=== PATIENT | female | born 1960 | race Caucasian/White ===

== ENCOUNTER 2017-07-17 16:36 | Inpatient (IN) | payer SELFPAY ==
[2017-07-17] MEDS: HYDROcodone/APAP 5/325MG 1 TAB TABLET PO (19:53)
[2017-07-17] MEDS: OXcarbazepine 300 MG TABLET PO (22:05)
[2017-07-17] MEDS: ALPRAZolam 1 MG TABLET PO (22:05)
[2017-07-17] MEDS: AMOXICILLIN 250 MG CAPSULE. PO (22:05)
[2017-07-17] MEDS: IV NORMAL SALINE 1000ML BAG 1,000 ML IV (22:06)
[2017-07-17 22:28] LABS: HEMATOCRIT 40.3 % (36.0-47.0); HEMOGLOBIN 14.6 g/dL (12.0-15.5); MEAN CORPUSCULAR HEMOGLOBIN 33 pg (25-35); MEAN CORPUSCULAR HGB CONC 36 g/dL (31-37); MEAN CORPUSCULAR VOLUME 92 fL (79-100); PLATELET COUNT 227 x10^3/uL (140-400); RED BLOOD COUNT 4.38 x10^6/uL (3.50-5.40); RED CELL DISTRIBUTION WIDTH 12.9 % (11.5-14.5); WHITE BLOOD COUNT 8.3 x10^3/uL (4.0-11.0)
[2017-07-17 22:41] LABS: ALBUMIN 3.9 g/dL (3.4-5.0); ALBUMIN/GLOBULIN RATIO 1.1 (1.0-1.7); ALK PHOS 92 U/L (46-116); ALT (SGPT) 53 U/L (14-59); ANION GAP 8 (6-14); AST (SGOT) 33 U/L (15-37); BLOOD UREA NITROGEN 12 mg/dL (7-20); BUN/CREATININE RATIO 17 (6-20); CALCIUM 8.4 mg/dL (8.5-10.1); CARBON DIOXIDE 27 mmol/L (21-32); CHLORIDE 81 mmol/L (98-107); CREATININE 0.7 mg/dL (0.6-1.0); GFR 87.2; GLUCOSE 104 mg/dL (70-99); POTASSIUM 3.5 mmol/L (3.5-5.1); TOTAL BILIRUBIN 0.7 mg/dL (0.2-1.0); TOTAL PROTEIN 7.5 g/dL (6.4-8.2)
[2017-07-17 22:51] LABS: THYROID STIM HORMONE (TSH) 1.723 uIU/mL (0.358-3.74)
[2017-07-17] MEDS: TEMAZEPAM 7.5 MG CAPSULE PO (22:57)
[2017-07-17 23:17] LABS: SODIUM 116 mmol/L (136-145)
[2017-07-18] MEDS: HYDROcodone/APAP 5/325MG 1 TAB TABLET PO (03:14)
[2017-07-18 07:04] LABS: ANION GAP 9 (6-14); BLOOD UREA NITROGEN 12 mg/dL (7-20); CALCIUM 8.3 mg/dL (8.5-10.1); CARBON DIOXIDE 28 mmol/L (21-32); CHLORIDE 88 mmol/L (98-107); CREATININE 0.7 mg/dL (0.6-1.0); GFR 87.2; GLUCOSE 102 mg/dL (70-99); POTASSIUM 3.8 mmol/L (3.5-5.1); SODIUM 125 mmol/L (136-145)
[2017-07-18] MEDS: PANTOPRAZOLE 40 MG TABLET.DR. PO (08:07)
[2017-07-18] MEDS: levETIRAcetam 250 MG TABLET PO ×2 (08:55→21:11)
[2017-07-18] MEDS: AMOXICILLIN 250 MG CAPSULE. PO ×3 (08:55→21:11)
[2017-07-18] MEDS: LISINOPRIL 20 MG TABLET PO (08:56)
[2017-07-18] MEDS: hydroCHLOROthiazide 12.5 MG CAPSULE PO (08:56)
[2017-07-18] MEDS: ALPRAZolam 1 MG TABLET PO ×3 (08:58→21:11)
[2017-07-18] MEDS: OXcarbazepine 300 MG TABLET PO ×2 (08:59→21:11)
[2017-07-18] MEDS ORDERED: NON FORMULARY ITEM (Lisinopril/Hydrochlorothiazide (Lisinopril-Hctz 20-12.5 Mg Tab) 1 TAB) PO (09:00)
[2017-07-18] MEDS: IV NORMAL SALINE 1000ML BAG 1,000 ML IV (12:42)
[2017-07-18] MEDS: ACETAMINOPHEN 325 MG TABLET. PO (13:04)
[2017-07-18 14:43] LABS: URIC ACID 2.3 mg/dL (2.6-6.0)
[2017-07-18] MEDS: LACTOBACILLUS RHAMNOSUS GG 1 CAPSULE. PO (21:11)
[2017-07-18 21:17] LABS: SODIUM, URINE 64 mmol/L (Not Estab.); UR POTASSIUM 14.8 mmol/L (Not Estab.)
[2017-07-19] MEDS: IV NORMAL SALINE 1000ML BAG 1,000 ML IV ×2 (02:04→13:39)
[2017-07-19] MEDS: ACETAMINOPHEN 325 MG TABLET. PO ×2 (06:01→19:44)
[2017-07-19 06:20] LABS: ANION GAP 6 (6-14); BLOOD UREA NITROGEN 17 mg/dL (7-20); CALCIUM 9.2 mg/dL (8.5-10.1); CARBON DIOXIDE 29 mmol/L (21-32); CHLORIDE 103 mmol/L (98-107); CREATININE 0.8 mg/dL (0.6-1.0); GFR 74.7; GLUCOSE 94 mg/dL (70-99); POTASSIUM 4.1 mmol/L (3.5-5.1); SODIUM 138 mmol/L (136-145)
[2017-07-19] MEDS: ALPRAZolam 1 MG TABLET PO ×3 (08:25→21:01)
[2017-07-19] MEDS: AMOXICILLIN 250 MG CAPSULE. PO ×3 (08:25→21:00)
[2017-07-19] MEDS: OXcarbazepine 300 MG TABLET PO ×2 (08:25→21:01)
[2017-07-19] MEDS: PANTOPRAZOLE 40 MG TABLET.DR. PO (08:25)
[2017-07-19] MEDS: levETIRAcetam 250 MG TABLET PO ×2 (08:26→21:01)
[2017-07-19] MEDS: LACTOBACILLUS RHAMNOSUS GG 1 CAPSULE. PO ×2 (08:26→21:00)
[2017-07-19] MEDS: LISINOPRIL 20 MG TABLET PO (08:30)
[2017-07-20 05:26] LABS: ANION GAP 8 (6-14); BLOOD UREA NITROGEN 11 mg/dL (7-20); CALCIUM 9.1 mg/dL (8.5-10.1); CARBON DIOXIDE 26 mmol/L (21-32); CHLORIDE 104 mmol/L (98-107); CREATININE 0.7 mg/dL (0.6-1.0); GFR 87.2; GLUCOSE 100 mg/dL (70-99); POTASSIUM 4.1 mmol/L (3.5-5.1); SODIUM 138 mmol/L (136-145)
[2017-07-20] MEDS: LACTOBACILLUS RHAMNOSUS GG 1 CAPSULE. PO (08:27)
[2017-07-20] MEDS: AMOXICILLIN 250 MG CAPSULE. PO (08:27)
[2017-07-20] MEDS: PANTOPRAZOLE 40 MG TABLET.DR. PO (08:27)
[2017-07-20] MEDS: ALPRAZolam 1 MG TABLET PO (08:27)
[2017-07-20] MEDS: levETIRAcetam 250 MG TABLET PO (08:27)
[2017-07-20] MEDS: OXcarbazepine 300 MG TABLET PO (08:27)
[2017-07-20] MEDS: LISINOPRIL 20 MG TABLET PO (09:00)
== END 2017-07-20 12:00 | disposition home or self-care (01) | DRG 641 ==
LOC: 5 NORTH 16:36
DX: E87.1 Hypo-osmolality and hyponatremia (principal); F17.210 Nicotine dependence, cigarettes, uncomplicated; F32.9 Major depressive disorder, single episode, unspecified; G40.909 Epilepsy, unspecified, not intractable, without status epilepticus; F41.9 Anxiety disorder, unspecified; I10 Essential (primary) hypertension; J44.9 Chronic obstructive pulmonary disease, unspecified; Z82.0 Family history of epilepsy and other diseases of the nervous system; Z86.73 Personal history of transient ischemic attack (TIA), and cerebral infarction without residual deficits
CPT/HCPCS: 36415; 71046; 80048; 80053; 82436; 83930; 84133; 84300; 84439; 84443; 84550; 85027; J7030

== ENCOUNTER 2018-04-19 14:26 | Emergency (ER) | payer SELFPAY ==
[~2018-04-19] VITALS: Ht 165.1 cm; Wt 72.6 kg
[~2018-04-19 14:26] MED LIST: ALPR0.25 PO; ALPR1TAB6 PO; AMOX500C PO; ESOM20CA PO; LEVE250T4 PO; LISI-130 PO; LISI1TAB5 PO; OXCA300T19 PO; TEMA7.5C2 PO
[2018-04-19] MEDS ORDERED: IV NORMAL SALINE 1000ML BAG 1,000 ML IV ONE (15:45)
[2018-04-19 15:50] LABS: BASO # 0.1 x10^3/uL (0.0-0.2); BASO % 1 % (0-3); EOS # 0.1 x10^3/uL (0.0-0.7); EOS % 2 % (0-3); HEMATOCRIT 42.7 % (36.0-47.0); HEMOGLOBIN 14.3 g/dL (12.0-15.5); LYMPH # 2.9 x10^3/uL (1.0-4.8); LYMPH % 46 % (24-48); MEAN CORPUSCULAR HEMOGLOBIN 33 pg (25-35); MEAN CORPUSCULAR HGB CONC 33 g/dL (31-37); MEAN CORPUSCULAR VOLUME 97 fL (79-100); MONO # 0.5 x10^3/uL (0.0-1.1); MONO % 8 % (0-9); NEUT # 2.7 x10^3uL (1.8-7.7); NEUT % 43 % (31-73); PLATELET COUNT 229 x10^3/uL (140-400); RED BLOOD COUNT 4.39 x10^6/uL (3.50-5.40); RED CELL DISTRIBUTION WIDTH 13.3 % (11.5-14.5); WHITE BLOOD COUNT 6.2 x10^3/uL (4.0-11.0)
[2018-04-19 15:54] LABS: BILIRUBIN,URINE NEGATIVE (NEG); CLARITY,URINE CLEAR; COLOR,URINE YELLOW; NITRITE,URINE NEGATIVE (NEG); PROTEIN,URINE NEGATIVE (NEG-TRACE)
[2018-04-19 15:55] LABS: BARBITURATES NEG (NEG); BENZODIAZEPINES POS (NEG); CANNABINOIDS NEG (NEG); COCAINE NEG (NEG); METHADONE NEG (NEG); OPIATES NEG (NEG); PHENCYCLIDINE NEG (NEG)
[2018-04-19 15:58] LABS: CALCIUM 9.8 mg/dL (8.5-10.1); CREATININE 0.7 mg/dL (0.6-1.0); GFR 86.9; POTASSIUM 3.4 mmol/L (3.5-5.1)
[2018-04-19 16:00] LABS: AMPHETAMINE/METHAMPHETAMINE NEG (NEG); HYALINE CASTS, URINE FEW /HPF; SQUAMOUS EPITHELIAL CELL,UR MOD /LPF
[2018-04-19] MEDS ORDERED: BUTALB/APAP/CAFEIN 50/325/40MG TABLET. PO ONE (16:00)
[2018-04-19 16:01] LABS: BACTERIA,URINE MODERATE /HPF (0-FEW); RBC,URINE 0 /HPF (0-2); WBC,URINE 0 /HPF (0-4)
[2018-04-19 16:04] LABS: ALBUMIN 4.1 g/dL (3.4-5.0); ALBUMIN/GLOBULIN RATIO 1.1 (1.0-1.7); TOTAL BILIRUBIN 0.6 mg/dL (0.2-1.0); TOTAL PROTEIN 7.7 g/dL (6.4-8.2)
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
--- NOTE | 2018-04-19 16:17 | RAD ---
Examination: CT HEAD WO CONTRAST History: ams Comparison/Correlation: None Findings: Axial images of the head were obtained without contrast. Mild atrophy and chronic ischemic change are present. No intracranial hemorrhage, midline shift, or mass effect. Bony structures are unremarkable. Impression: No acute process. PQRS Compliance Statement: One or more of the following individualized dose reduction techniques were utilized for this examination: 1. Automated exposure control 2. Adjustment of the mA and/or kV according to patient size 3. Use of iterative reconstruction technique Electronically signed by: Pelon Ellis MD (04/19/2018 4:14 PM) [facility]
--- NOTE | 2018-04-19 16:18 | RAD ---
CHEST PA LATERAL History: COUGH, AMS Comparison: Two-view chest, July 18, 2017. Findings: The cardiomediastinal silhouette is normal. Pulmonary vasculature is normal. The lungs are clear. No pleural effusion or pneumothorax is seen. There is no acute bone abnormality. IMPRESSION: No acute cardiopulmonary process. Electronically signed by: Moustapha Nicolas MD (04/19/2018 4:15 PM) [id number]
[2018-04-19 17:00] VITALS: BP 126/68
[2018-04-19] MEDS ORDERED: BUTA1TAB23 PO (17:01)
[2018-04-19 17:47] LABS: CARBAM < 0.5 mcg/mL (4.0-12.0)
--- NOTE | 2018-04-19 17:55 | EKG ---
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
--- NOTE | 2018-04-19 18:33 | RAD ---
Examination: 3 views of the left hand HISTORY: History of fall, pain COMPARISON: None available FINDINGS: The alignment of the carpal bones grossly appears unremarkable. The carpometacarpal joint, metacarpophalangeal, interphalangeal joints grossly appears unremarkable. There is no obvious acute fracture or dislocation identified. IMPRESSION: No acute osseous findings. Electronically signed by: Ren Ferrell MD (04/19/2018 6:30 PM) [facility]
== END 2018-04-19 17:49 | disposition home or self-care (01) ==
LOC: ER 14:26
DX: R41.0 Disorientation, unspecified (principal); R51 Headache; G56.02 Carpal tunnel syndrome, left upper limb; R35.0 Frequency of micturition; R19.7 Diarrhea, unspecified; R50.9 Fever, unspecified; F41.9 Anxiety disorder, unspecified; I10 Essential (primary) hypertension; Z90.89 Acquired absence of other organs
CPT/HCPCS: 36415; 70450; 71046; 73130; 80053; 80156; 80307; 81001; 82140; 82553; 83605; 83735; 84484; 85025; 85610; 85730; 87086; 93005; 96360; 99284; G0480; J7030

== ENCOUNTER → 2018-09-02 | Outpatient (CLI) | payer SELFPAY ==
[~2018-09-02] MED LIST changes: +BUTA1TAB23 PO; +GADOTERATE 7.5 MMOL/15ML VIAL. IVP ONE
--- NOTE | 2018-09-02 14:29 | RAD ---
EXAMINATION: Magnetic resonance imaging (MRI) of the brain and brainstem without and with contrast 09/02/2018 11:15 AM HISTORY: Recent multiple seizures TECHNIQUE: Multiplanar multi-weighted MRI of the brain and brainstem was performed without and with intravenous contrast using the seizure brain protocol. Contrast information: 13 mL Gadolinium based contrast COMPARISON: None available. FINDINGS: The scalp and calvarium are normal. The superior sagittal sinus demonstrates normal venous flow. The corpus callosum is normal in shape and signal intensity. The posterior fossa is unremarkable. The pituitary and sella are normal. The brainstem and craniocervical junction are unremarkable. There is a remote lacunar infarct along the right caudate head with expected dilatation of the body of the right lateral ventricle. Hippocampi are symmetric in signal intensity and morphology. There is no heterotopic cabral matter. No findings to suggest confirmation of cortical development. Ventricles, sulci and basal cisterns are prominent compatible with mild generalized cerebral volume loss. There are T2/FLAIR signal hyperintense foci in the periventricular and subcortical white matter most suggestive of mild chronic small vessel ischemic changes. Diffusion weighted images reveal no hyperintensities to suggest acute cerebral infarction. The susceptibility weighted sequences reveal no evidence of acute or chronic hemorrhage. No hydrocephalus. There are no areas of abnormal contrast enhancement. Tiny mucus retention cyst is identified in the lateral left maxillary sinus. The visualized portions of the mastoids are unremarkable. The orbits appear normal. Normal flow voids are demonstrated in the carotid arteries and basilar artery. IMPRESSION: 1. No evidence for acute or subacute ischemia. 2. Remote lacunar infarct involving the right caudate head with expected dilatation of the body of the right lateral ventricle. 3. Mild generalized cerebral volume loss. 4. Hippocampi are symmetric in signal intensity and morphology. 5. There are T2/FLAIR signal hyperintense foci in the periventricular and subcortical white matter most suggestive of mild chronic small vessel ischemic changes. Electronically signed by: Merlyn Dougherty MD (09/02/2018 2:27 PM) [id number]
== END | disposition home or self-care (01) ==
LOC: MRI 11:29
PROVIDERS: ATTEND Family Medicine
DX: I63.81 Other cerebral infarction due to occlusion or stenosis of small artery (principal); J34.1 Cyst and mucocele of nose and nasal sinus; R90.82 White matter disease, unspecified; Z87.820 Personal history of traumatic brain injury
CPT/HCPCS: 70553; A9575

== ENCOUNTER 2018-09-07 23:48 | Emergency (ER) | payer SELFPAY ==
[~2018-09-07] VITALS: Ht 165.1 cm; Wt 68.0 kg
[~2018-09-07 23:48] MED LIST changes: -GADOTERATE 7.5 MMOL/15ML VIAL. IVP ONE
[2018-09-08 01:18] LABS: CREATININE ISTAT 1.9 mg/dL (0.5-1.4); HEMOGLOBIN ISTAT 14.3 g/dL (12-15); ION CA ISTAT 1.14 mmol/L (1.13-1.32); POTASSIUM ISTAT 3.2 mmol/L (3.5-5.0)
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
[2018-09-08 01:31] VITALS: BP 91/54
--- NOTE | 2018-09-08 08:02 | RAD ---
Examination: PORTABLE CHEST 1V History: Pain, trauma Comparison/Correlation: 04/19/2018 two-view chest x-ray exam Findings: Portable upright frontal view chest was obtained. Heart size and pulmonary vasculature are normal. No infiltrate or pleural effusion. No pneumothorax. No acute bony process. Impression: No active disease. Consider further evaluation if fracture is a persistent concern. Electronically signed by: Pelon Ellis MD (09/08/2018 8:00 AM) [facility]
== END 2018-09-08 01:35 | disposition short-term general hospital (02) ==
LOC: ER 23:48
DX: S00.03XA Contusion of scalp, initial encounter (principal); S30.811A Abrasion of abdominal wall, initial encounter; S80.811A Abrasion, right lower leg, initial encounter; F10.129 Alcohol abuse with intoxication, unspecified; Y90.9 Presence of alcohol in blood, level not specified; F41.9 Anxiety disorder, unspecified; I10 Essential (primary) hypertension; Z90.89 Acquired absence of other organs; W10.8XXA Fall (on) (from) other stairs and steps, initial encounter; Y93.89 Activity, other specified; Y92.89 Other specified places as the place of occurrence of the external cause; Y99.8 Other external cause status
CPT/HCPCS: 36415; 36430; 71045; 80047; 81025; 86850; 86900; 86901; 86920; 99285; P9016

== ENCOUNTER 2019-04-01 13:06 | Emergency (ER) | payer SELFPAY ==
[~2019-04-01] VITALS: Ht 165.1 cm; Wt 66.0 kg
[~2019-04-01 13:06] MED LIST changes: +LISI1TAB19 PO; -LISI1TAB5 PO
[2019-04-01] MEDS ORDERED: IV NORMAL SALINE 1000ML BAG 1,000 ML IV SCH (13:35)
--- NOTE | 2019-04-01 13:40 | PHYS DOC ---
Past Medical History Past Medical History: Anxiety, Hypertension, Seizure, Other Additional Past Medical Histor: TBI, HYPONATREMIA, INSOMNIA Past Surgical History: Tonsillectomy, Other Additional Past Surgical Histo: NASAL SX Alcohol Use: Rarely Drug Use: Marijuana Social History Narrative: last use 3 weeks ago Adult General Chief Complaint Chief Complaint: NAUSEA/VOMITING/DIARRHA HPI HPI Patient is a 58-year-old female who presents to the emergency department for evaluation with multiple complaints. She states about 10 days ago she developed a cold, sore PCP and was put on a Z-Mikey. She states she felt better for a few days, but over the past 2-3 days, she had return of not feeling well. She states she has had a headache throughout the entire time, for the past 10 days, different than prior headaches that she has had. She has had some nausea and vomiting and diarrhea over the past 2 days, but states her diarrhea has really been going on for several weeks, even prior to her starting the antibiotics. She has not had any hematemesis, or bloody stools. She has not had any numbness, weakness, vision changes, significant chest pain, or significant shortness of breath. There are no alleviating or exacerbating factors to her symptoms otherwise. Review of Systems Review of Systems Constitutional: Denies fever or chills [] Eyes: Denies change in visual acuity, redness, or eye pain [] HENT: Denies nasal congestion or sore throat [] Respiratory: Denies shortness of breath [] Cardiovascular: The patient denies any shortness of breath, chest pain, palpitations, or orthopnea [] GI: No additional information not addressed in HPI [] : Denies dysuria or hematuria [] Musculoskeletal: Denies back pain or joint pain [] Integument: Denies rash or skin lesions [] Neurologic: Denies focal weakness or sensory changes [] Endocrine: Denies polyuria or polydipsia [] All other systems were reviewed and found to be within normal limits, except as documented in this note. Current Medications Current Medications Current Medications Medications (Trade) Dose Ordered Sig/Hernan Start Time Stop Time Status Last Admin Dose Admin Info (CONTRAST GIVEN -- Rx MONITORING) 1 each PRN DAILY PRN 04/01/19 14:30 04/03/19 14:29 Iohexol (Omnipaque 300 Mg/ml) 60 ml 1X ONCE 04/01/19 14:30 04/01/19 14:31 DC 04/01/19 14:40 60 ML Sodium Chloride 1,000 ml @ 1,000 mls/hr Q1H 04/01/19 13:35 04/01/19 14:34 DC 04/01/19 14:09 1,000 MLS/HR Allergies Allergies Allergies Coded Allergies Type Severity Reaction Last Updated Verified No Known Drug Allergies 07/17/17 No Physical Exam Physical Exam PHYSICAL EXAM: CONSTITUTIONAL: Well developed, well nourished HEAD: normocephalic, atraumatic EENT: PERRL, EOMI. Conjunctivae normal color, sclerae non-icteric; moist mucous membranes. NECK: Supple, non-tender; no meningismus. LUNGS: Mild scattered expiratory rhonchi, breathing even and unlabored. Normal air movement. HEART: Regular rate and rhythm, no murmur CHEST: No deformity; non-tender ABDOMEN: The abdomen is soft, there is mild diffuse tenderness to palpation to lower abdomen, without rebound or guarding, no masses or bruits. EXTREM: Normal ROM; no deformity, no calf tenderness. Normal pulses palpable in all extremities. There is no pedal edema. SKIN: No rash; no diaphoresis NEURO: Alert; normal speech and cognition; CN's grossly intact; strength grossly intact without focal deficit. BACK: No CVA TTP. PSYCHIATRIC: The patient appears moderately anxious. Current Patient Data Vital Signs Vital Signs Date Time Temp Pulse Resp B/P (MAP) Pulse Ox O2 Delivery O2 Flow Rate FiO2 04/01/19 13:15 98.3 104 18 151/97 (115) 97 Room Air 98.3 Lab Values Laboratory Tests Test 04/01/19 14:00 04/01/19 14:02 White Blood Count 7.5 x10^3/uL (4.0-11.0) Red Blood Count 4.52 x10^6/uL (3.50-5.40) Hemoglobin 15.2 g/dL (12.0-15.5) Hematocrit 44.3 % (36.0-47.0) Mean Corpuscular Volume 98 fL (79-100) Mean Corpuscular Hemoglobin 34 pg (25-35) Mean Corpuscular Hemoglobin Concent 34 g/dL (31-37) Red Cell Distribution Width 14.7 % (11.5-14.5) H Platelet Count 245 x10^3/uL (140-400) Neutrophils (%) (Auto) 53 % (31-73) Lymphocytes (%) (Auto) 35 % (24-48) Monocytes (%) (Auto) 10 % (0-9) H Eosinophils (%) (Auto) 1 % (0-3) Basophils (%) (Auto) 1 % (0-3) Neutrophils # (Auto) 4.0 x10^3/uL (1.8-7.7) Lymphocytes # (Auto) 2.6 x10^3/uL (1.0-4.8) Monocytes # (Auto) 0.8 x10^3/uL (0.0-1.1) Eosinophils # (Auto) 0.0 x10^3/uL (0.0-0.7) Basophils # (Auto) 0.1 x10^3/uL (0.0-0.2) Sodium Level 141 mmol/L (136-145) Potassium Level 3.5 mmol/L (3.5-5.1) Chloride Level 100 mmol/L (98-107) Carbon Dioxide Level 30 mmol/L (21-32) Anion Gap 11 (6-14) Blood Urea Nitrogen 13 mg/dL (7-20) Creatinine 1.0 mg/dL (0.6-1.0) Estimated GFR (Cockcroft-Gault) 57.4 BUN/Creatinine Ratio 13 (6-20) Glucose Level 105 mg/dL (70-99) H Calcium Level 9.6 mg/dL (8.5-10.1) Total Bilirubin 0.6 mg/dL (0.2-1.0) Aspartate Amino Transferase (AST) 22 U/L (15-37) Alanine Aminotransferase (ALT) 20 U/L (14-59) Alkaline Phosphatase 84 U/L (46-116) Troponin I Quantitative 0.018 ng/mL (0.000-0.055) Total Protein 7.4 g/dL (6.4-8.2) Albumin 3.6 g/dL (3.4-5.0) Albumin/Globulin Ratio 0.9 (1.0-1.7) L Lipase 129 U/L (73-393) Influenza Type A Antigen Negative (NEGATIVE) Influenza Type B Antigen Negative (NEGATIVE) Laboratory Tests 04/01/19 14:00 Laboratory Tests 04/01/19 14:00 EKG EKG Normal sinus rhythm a rate of 97 beats for minute, left axis deviation, left bundle branch block, with otherwise normal intervals. There are no acute ischemic ST/T changes. []EKG is unchanged compared to patient's prior EKG. Radiology/Procedures Radiology/Procedures PROCEDURE: CT HEAD WO CONTRAST EXAM: CT HEAD WITHOUT CONTRAST. HISTORY: Headache. TECHNIQUE: Computed tomography of the head was performed without intravenous contrast. One or more of the following individualized dose reduction techniques were utilized for this examination: 1. Automated exposure control. 2. Adjustment of the mA and/or kV according to patient size. 3. Use of iterative reconstruction technique. COMPARISON: 04/19/2018. FINDINGS: There is no intracranial hemorrhage. Hypoattenuation within the white matter indicates moderate chronic microangiopathic change. Prominence of the lateral ventricles and hemispheric sulci indicates moderate atrophy. The visualized paranasal sinuses appear clear. The orbits are unremarkable. The temporal bones are unremarkable. The calvarium reveals no suspicious lesions. IMPRESSION: 1. No acute intracranial findings. 2. Moderate atrophy and chronic microangiopathic white matter change.[] PROCEDURE: CT ABD PELV W/ IV CONTRST ONLY EXAM: Abdomen and pelvis CT with intravenous contrast. HISTORY: Pain. TECHNIQUE: Computed tomographic images of the abdomen and pelvis were obtained following the administration of intravenous contrast. Multiplanar reformatting was performed. *One or more of the following individualized dose reduction techniques were utilized for this examination: 1. Automated exposure control. 2. Adjustment of the mA and/or kV according to patient size. 3. Use of iterative reconstruction technique. COMPARISON: None. FINDINGS: Evaluation of the lower thorax demonstrates slight inferior bronchial wall thickening. There are ill-defined right infrahilar groundglass nodular opacities which may be infectious or inflammatory in etiology. The heart is normal in size. No hepatic lesion is seen. There is mild common bile duct dilatation. The pancreas, spleen, adrenal glands, kidneys and bladder are unremarkable. The uterus and ovaries are unremarkable. The appendix is normal in appearance. No abnormally thickened or dilated loop of bowel is seen. There are few colonic diverticula. There is no lymphadenopathy. The aorta is normal in caliber. There is no suspicious osseous lesion. There is a suspected hemangioma within the anterior inferior aspect of T10. IMPRESSION: 1. Mild common bile duct dilatation for patient age. ERCP or MRCP can be performed if this concern for an occult obstructing etiology. 2. Small groundglass nodular opacities within the right lower lobe, possibly infectious or inflammatory in etiology. The superimposed on slight bronchial wall thickening suggesting the sequela of bronchitis. PROCEDURE: CHEST PA & LATERAL EXAM: CHEST 2 VIEWS. HISTORY: Cough. COMPARISON: 09/08/2018. FINDINGS: Frontal and lateral views of the chest are obtained. There are no confluent infiltrates. There is no pneumothorax or pleural effusion. The heart is not enlarged. IMPRESSION: 1. No confluent infiltrates. Course & Med Decision Making Course & Med Decision Making Pertinent Labs and Imaging studies reviewed. (See chart for details) [] 3:40 PM: The patient's condition remains stable. Clinical suspicion for acute pathology relating to the patient's common bile duct is very low although I did discuss importance of close outpatient GI follow-up. Return precautions were discussed in detail. Dragon Disclaimer Dragon Disclaimer This electronic medical record was generated, in whole or in part, using a voice recognition dictation system. Departure Departure Impression: Primary Impression: Bronchitis Additional Impressions: Abdominal pain Headache Disposition: HOME, SELF-CARE Condition: STABLE Referrals: MAXIMO PARKINSON MD (PCP) GELA KIRKLAND MD Patient Instructions: Abdominal Pain, Acute Bronchitis, General Headache Without Cause Scripts Ondansetron (ONDANSETRON ODT) 4 Mg Tab.rapdis 1 TAB PO PRN Q6-8HRS, #15 TAB Prov: RADHA RUBY MD 04/01/19 Problem Qualifiers RADHA RUBY MD Apr 01, 2019 13:40
[2019-04-01 14:12] LABS: BASO # 0.1 x10^3/uL (0.0-0.2); BASO % 1 % (0-3); EOS % 1 % (0-3); HEMATOCRIT 44.3 % (36.0-47.0); HEMOGLOBIN 15.2 g/dL (12.0-15.5); LYMPH # 2.6 x10^3/uL (1.0-4.8); LYMPH % 35 % (24-48); MEAN CORPUSCULAR HEMOGLOBIN 34 pg (25-35); MEAN CORPUSCULAR HGB CONC 34 g/dL (31-37); MEAN CORPUSCULAR VOLUME 98 fL (79-100); MONO # 0.8 x10^3/uL (0.0-1.1); MONO % 10 % (0-9); NEUT % 53 % (31-73); PLATELET COUNT 245 x10^3/uL (140-400); RED BLOOD COUNT 4.52 x10^6/uL (3.50-5.40); RED CELL DISTRIBUTION WIDTH 14.7 % (11.5-14.5); WHITE BLOOD COUNT 7.5 x10^3/uL (4.0-11.0)
--- NOTE | 2019-04-01 14:14 | EKG ---
[facility] [address] [place] [address] Test Date: 2019-04-01 Test Time: 13:51:41 Pat Name: SOHA LEE Department: Room: Gender: F Supervisor Electronic Testing: : 1960 Requested By: RADHA RUBY Order Number: [id number] Reading MD: Measurements Intervals [place] Rate: 96 P: 49 CO: 142 QRS: -30 QRSD: 122 T: 113 QT: 402 QTc: 515 Interpretive Statements SINUS RHYTHM ABNORMAL LEFT AXIS DEVIATION INCOMPLETE LEFT BUNDLE BRANCH BLOCK LVH WITH REPOLARIZATION ABNORMALITY ABNORMAL ECG No previous ECG available for comparison
[2019-04-01 14:19] LABS: CALCIUM 9.6 mg/dL (8.5-10.1); GFR 57.4; POTASSIUM 3.5 mmol/L (3.5-5.1)
[2019-04-01 14:25] LABS: ALBUMIN 3.6 g/dL (3.4-5.0); ALBUMIN/GLOBULIN RATIO 0.9 (1.0-1.7); TOTAL BILIRUBIN 0.6 mg/dL (0.2-1.0); TOTAL PROTEIN 7.4 g/dL (6.4-8.2)
[2019-04-01] MEDS ORDERED: IOHEXOL 300 MG/ML 100ML VIAL. IV ONE (14:30)
[2019-04-01] MEDS ORDERED: CONTRAST GIVEN. MC PRN (14:30)
[2019-04-01 14:39] LABS: INFLUENZA A PATIENT NEGATIVE (NEGATIVE); INFLUENZA B PATIENT NEGATIVE (NEGATIVE)
--- NOTE | 2019-04-01 14:43 | RAD ---
EXAM: CHEST 2 VIEWS. HISTORY: Cough. COMPARISON: 09/08/2018. FINDINGS: Frontal and lateral views of the chest are obtained. There are no confluent infiltrates. There is no pneumothorax or pleural effusion. The heart is not enlarged. IMPRESSION: 1. No confluent infiltrates. Electronically signed by: Emy Booker MD (04/01/2019 2:39 PM) [facility]
--- NOTE | 2019-04-01 14:52 | RAD ---
EXAM: CT HEAD WITHOUT CONTRAST. HISTORY: Headache. TECHNIQUE: Computed tomography of the head was performed without intravenous contrast. One or more of the following individualized dose reduction techniques were utilized for this examination: 1. Automated exposure control. 2. Adjustment of the mA and/or kV according to patient size. 3. Use of iterative reconstruction technique. COMPARISON: 04/19/2018. FINDINGS: There is no intracranial hemorrhage. Hypoattenuation within the white matter indicates moderate chronic microangiopathic change. Prominence of the lateral ventricles and hemispheric sulci indicates moderate atrophy. The visualized paranasal sinuses appear clear. The orbits are unremarkable. The temporal bones are unremarkable. The calvarium reveals no suspicious lesions. IMPRESSION: 1. No acute intracranial findings. 2. Moderate atrophy and chronic microangiopathic white matter change. Electronically signed by: Emy Booker MD (04/01/2019 2:49 PM) [facility]
--- NOTE | 2019-04-01 14:53 | RAD ---
EXAM: Abdomen and pelvis CT with intravenous contrast. HISTORY: Pain. TECHNIQUE: Computed tomographic images of the abdomen and pelvis were obtained following the administration of intravenous contrast. Multiplanar reformatting was performed. *One or more of the following individualized dose reduction techniques were utilized for this examination: 1. Automated exposure control. 2. Adjustment of the mA and/or kV according to patient size. 3. Use of iterative reconstruction technique. COMPARISON: None. FINDINGS: Evaluation of the lower thorax demonstrates slight inferior bronchial wall thickening. There are ill-defined right infrahilar groundglass nodular opacities which may be infectious or inflammatory in etiology. The heart is normal in size. No hepatic lesion is seen. There is mild common bile duct dilatation. The pancreas, spleen, adrenal glands, kidneys and bladder are unremarkable. The uterus and ovaries are unremarkable. The appendix is normal in appearance. No abnormally thickened or dilated loop of bowel is seen. There are few colonic diverticula. There is no lymphadenopathy. The aorta is normal in caliber. There is no suspicious osseous lesion. There is a suspected hemangioma within the anterior inferior aspect of T10. IMPRESSION: 1. Mild common bile duct dilatation for patient age. ERCP or MRCP can be performed if this concern for an occult obstructing etiology. 2. Small groundglass nodular opacities within the right lower lobe, possibly infectious or inflammatory in etiology. The superimposed on slight bronchial wall thickening suggesting the sequela of bronchitis. Electronically signed by: Amy Cameron MD (04/01/2019 2:50 PM) [facility]
[2019-04-01] MEDS ORDERED: ONDA4TAB12 PO (15:46)
[2019-04-01 16:17] VITALS: BP 122/85
== END 2019-04-01 16:17 | disposition home or self-care (01) ==
LOC: ER 13:06
DX: J40 Bronchitis, not specified as acute or chronic (principal); R51 Headache; R10.84 Generalized abdominal pain; R11.2 Nausea with vomiting, unspecified; R19.7 Diarrhea, unspecified; I10 Essential (primary) hypertension; F41.9 Anxiety disorder, unspecified; Z87.820 Personal history of traumatic brain injury
CPT/HCPCS: 36415; 70450; 71046; 74177; 80053; 83690; 84484; 85025; 87804; 93005; 96360; 96361; 99285; J7030; Q9967